=== PATIENT | female | born 1980 | race American Indian/Alaskan Native ===

== ENCOUNTER 2019-02-03 10:27 | Day surgery (SDC) | payer MEDICAID ==
[2019-02-03] MEDS ORDERED: NACL 0.9% 1000 ML 1,000 ML IV SCH (11:00)
--- NOTE | 2019-02-03 11:50 | Procedure Note ---
Date of procedure: 02/03/19 Pre-op diagnosis: Diarrhea Post-op diagnosis: other (Diarrhea/ R/O MIcroscopic Colitis/ R/O Ileitis/ Small, Rectal Polyps (possibly Hyperplastic)) Procedure: Colonoscopy with Biopsy Anesthesia: MAC Surgeon: MEENA DANIELLE Estimated blood loss: minimal Pathology: list Specimen disposition: to lab Condition: stable Disposition: same day (Treat with Imodium AD (OTC) as dneeded for diarrhea. Take Probiotic (OTC) as directed. Avoid aspirin and NSAID for 5 days and follow up in 1 to 2 weeks ([phone]).)
--- NOTE | 2019-02-03 12:44 | Operative Report ---
COLONOSCOPY WITH BIOPSY INDICATIONS: This is a 38-year-old slightly obese -[place] female, who has been complaining of persistent diarrhea. Colonoscopy was done to assess for any associated colitis procedure or any significant lower GI pathology. DESCRIPTION OF PROCEDURE: Procedure was done after getting informed consent with MAC anesthesia. Initial rectal exam was unremarkable. The instrument was passed through the rectum onto the cecum, which was identified with ileocecal valve and appendiceal orifice. Visualization was fair to good. The terminal ileum was intubated showed normal mucosa. Biopsy was done to rule out for possible ileitis. Cecum, ascending colon, transverse colon, descending colon and sigmoid likewise showed normal mucosa. There was no evidence of any polyps, endoscopic evidence of colitis or diverticular disease. Random biopsies were done to rule out for microscopic colitis in the rectum showed few small rectal polyps, possibly hyperplastic that were removed by cold biopsy. There was minimal bleeding from the biopsy sites and no complications associated with the procedure. ASSESSMENT: Diarrhea, rule out microscopic colitis, rule out ileitis. Small rectal polyps, possibly hyperplastic. PLAN: The plan is to encourage the patient to take probiotics and also to encourage the patient to take Imodium A-D as needed on a p.r.n. basis. Once the patient comes to the hospital, she may be given some samples of ____ if available and asked to avoid aspirin and aspirin-related products for the next few days. Again, there were no complications or complications associated with the procedure. There was minimal bleeding associated with the procedure, RN, Concepción Maddox was in the room throughout the entirety of the procedure. JOB# [id number] KETAN/CECILIA
[2019-02-03 12:56] VITALS: BP 132/84
== END 2019-02-03 10:28 | disposition home or self-care (01) ==
LOC: GIO 10:27
DX: D12.8 Benign neoplasm of rectum (principal); R19.7 Diarrhea, unspecified; F17.210 Nicotine dependence, cigarettes, uncomplicated; Z91.013 Allergy to seafood; Z79.899 Other long term (current) drug therapy
CPT/HCPCS: 45380; 81025; 88305; J7030